=== PATIENT | male | born 1965 | race Caucasian/White ===

== ENCOUNTER 2020-05-27 08:51 | Outpatient (CLI) | payer OTHER ==
--- NOTE | 2020-05-27 12:29 | Ultrasound Report ---
. ULTRASOUND SCROTUM INDICATION: LEFT TESTICULAR MASS. COMPARISON None available. FINDINGS -- RIGHT TESTIS: Size: 3.3 x 1.7 x 2.7 cm. Echotexture: Normal. Color Doppler Flow: Normal. Lesions: None. EPIDIDYMIS: Size: Normal. Echotexture: Normal. Color Doppler Flow: Normal. Lesions: There is a 5 mm right epididymal head cyst versus spermatocele. Hydrocele: None. Varicocele: None. Additional Findings: None. FINDINGS -- LEFT TESTIS: Size: 4.3 x 1.8 x 3.2 cm. Echotexture: Normal. Color Doppler Flow: Normal. Lesions: None. EPIDIDYMIS: Size: Normal. Echotexture: Normal. Color Doppler Flow: Normal. Lesions: There are cou ple left epididymal head cysts versus spermatoceles, the larger measures 1.1 cm. Hydrocele: None. Varicocele: None. Additional Findings: None. IMPRESSION: 1. No testicular abnormalities. 2. Bilateral epididymal head cysts versus spermatoceles, the largest in the left measures 1.1 cm. Signer Name: Antolin Mares MD Signed: 05/27/2020 12:24 PM Workstation Name: [id number]
== END 2020-05-27 08:52 | disposition home or self-care (01) ==
LOC: US 08:51
PROVIDERS: ATTEND Psychiatry & Neurology Psychiatry
DX: N50.89 Other specified disorders of the male genital organs (principal)
CPT/HCPCS: 93975